=== PATIENT | male | born 1945 | race Caucasian/White ===

== ENCOUNTER 2017-05-29 12:47 | Observation (INO) | payer MEDICARE ==
[~2017-05-29 12:47] MED LIST: ASPI81TA82 PO; CLOP75 PO; COZA50TA PO; FURO1TAB93 PO; GLUCTAB PO; HYDR-3534 PO; HYDR100T2 PO; K-TA10TA5 PO; METO50 PO; METO5TAB46 PO; MULT-65 PO; NOVO7030P2 SQ; PRAV80 PO; PROM1SUP12 PR; PROT40TA PO; TYLE500T PO
[2017-05-29 13:25] VITALS: BP 140/80; PULSE 79; RESP 18; TEMP 98.1; O2SAT 97
--- NOTE | 2017-05-29 13:51 | RADRPT ---
EXAM DATE/TIME: 05/29/2017 13:41 [place] COMPARISON: No previous studies available for comparison. INDICATIONS : Chest pain. MEDICAL HISTORY : Heart attack. SURGICAL HISTORY : None. ENCOUNTER: Initial ACUITY: 1 day PAIN SCORE: 5/10 LOCATION: Bilateral chest FINDINGS: The lungs are hyperinflated but clear The heart is minimally enlarged. The pulmonary vascularity is n ormal. There is no evidence for infiltrate or failure. The portion of the bony skeleton visualized is unremarkable. CONCLUSION: Compensated cardiomegaly otherwise negative Sumanth Monreal MD FACR on May 29, 2017 at 13:50 Board Certified Radiologist. This report was verified electronically.
[2017-05-29 14:13] VITALS: O2SAT 97
--- NOTE | 2017-05-29 14:16 | PD ---
HPI Chief Complaint: Cardiac Complaint Time Seen by Provider: 13:53 Travel History International Travel<30 days: No Contact w/Intl Traveler<30days: No Traveled to known affect area: No History of Present Illness HPI 67-year-old male presents with chest tightness gradually worsening shortness of breath. Patient states diagnosed with CHF followed by Dr. Qureshi sent to the ER from urgent care today for evaluation to rule out patient has been having chest pain since last night. Patient states she has shortness of breath. PFSH Past Medical History Hx Anticoagulant Therapy: Yes Arthritis: Yes Heart Rhythm Problems: No Cancer: No Cardiovascular Problems: Yes High Cholesterol: Yes Chest Pain: Yes Congestive Heart Failure: No Diabetes: Yes Endocrine: No Gastrointestinal Disorders: Yes Glaucoma: Yes (MAC DEGENERATION) Genitourinary: No Hepatitis: No Hiatal Hernia: Yes Hypertension: Yes Immune Disorder: No Musculoskeletal: Yes (ARTHRITIS) Neurologic: No Psychiatric: No Reproductive: No Respiratory: Yes (SLEEP APNEA/ CPAP) Thyroid Disease: No Ulcer: No Past Surgical History Abdominal Surgery: Yes (UMB. HERNIA REP.) AICD: No Cardiac Surgery: No Ear Surgery: No Endocrine Surgery: No Eye Surgery: No Genitourinary Surgery: No Joint Replacement: Yes (RIGHT KNEE) Oral Surgery: No Pacemaker: No Thoracic Surgery: No Social History Alcohol Use: Yes (RECOVERING) Tobacco Use: No Substance Use: No Allergies-Medications (Allergen,Severity, Reaction): Coded Allergies: diatrizoate meglumine (Unverified Allergy, Unknown, 05/29/17) gadobenic acid (Unverified Allergy, Unknown, 05/29/17) gadodiamide (Unverified Allergy, Unknown, 05/29/17) gadoteridol (Unverified Allergy, Unknown, 05/29/17) iodixanol (Unverified Allergy, Unknown, 05/29/17) iohexol (Unverified Allergy, Unknown, 05/29/17) penicillin G (Unverified Allergy, Unknown, 05/29/17) Reported Meds & Prescriptions Reported Meds & Active Scripts Active Reported Warfarin 7.5 Mg Tab 7.5 Mg PO , , Patient takes Coumadin 7.5 mg Saturday and Saturday Warfarin 5 Mg Tab 5 Mg PO , , , Patient takes 5 mg Coumadin Saturday, , Saturday and Saturday Pravastatin 10 Mg Tab 10 Mg PO DAILY Novolin 70-30 Inj (Insulin Human Isoph/Insulin Regular) 1,000 Unit/10 Ml Vial 1 Units SQ Multiple Vitamin (Multivitamin with Minerals) 1 Each Tablet Metformin (Metformin HCl) 500 Mg Tab 500 Mg PO BIDPC Losartan (Losartan Potassium) 100 Mg Tab 100 Mg PO DAILY Hydralazine HCl 25 Mg Tablet 100 Mg PO BID Furosemide 40 Mg Tab 40 Mg PO BID Ferrous Sulfate 325 Mg (65 Mg Iron) Tablet 325 Mg PO DAILY Claritin (Loratadine) 10 Mg Cap 10 Mg PO DAILY [calcium] 600 Mg PO Jesus Contour Blood Glucose Strips (Blood Glucose Test Strips) Strip Strip 1 Strip .XX DIRECTED Aspirin 81 Mg Chew 81 Mg CHEW DAILY Review of Systems Except as stated in HPI: all other systems reviewed are Neg Physical Exam Narrative GENERAL: Well-developed well-nourished, mildly tachypneic but in no obvious distress peer SKIN: Focused skin assessment warm/dry. HEAD: Atraumatic. Normocephalic. EYES: Pupils equal and round. No scleral icterus. No injection or drainage. ENT: No nasal bleeding or discharge. Mucous membranes pink and moist. NECK: Trachea midline. No JVD. CARDIOVASCULAR: Regular rate and rhythm. No murmur appreciated. RESPIRATORY: No accessory muscle use. Clear to auscultation. Breath sounds equal bilaterally. Mildly tachypneic, speaking in full sentences per GASTROINTESTINAL: Abdomen soft, non-tender, nondistended. Hepatic and splenic margins not palpable. MUSCULOSKELETAL: No obvious deformities. No clubbing. No cyanosis. 2+ pitting edema to bilateral lower extremities this is present from the knees down. NEUROLOGICAL: Awake and alert. No obvious cranial nerve deficits. Motor grossly within normal limits. Normal speech. PSYCHIATRIC: Appropriate mood and affect; insight and judgment normal. Data Data Last Documented VS Vital Signs Date Time Temp Pulse Resp B/P (MAP) Pulse Ox O2 Delivery O2 Flow Rate FiO2 05/29/17 15:08 69 18 138/82 (100) 99 05/29/17 14:14 Room Air 05/29/17 13:25 98.1 Orders Orders Electrocardiogram (05/29/17 13:28) Complete Blood Count With Diff (05/29/17 13:28) Basic Metabolic Panel (Bmp) (05/29/17 13:28) Ckmb (Isoenzyme) Profile (05/29/17 13:28) Troponin I (05/29/17 13:28) Iv Access Insert/Monitor (05/29/17 13:28) Ecg Monitoring (05/29/17 13:28) Oxygen Administration (05/29/17 13:28) Oximetry (05/29/17 13:28) Prothrombin Time / Inr (Pt) (05/29/17 13:28) Act Partial Throm Time (Ptt) (05/29/17 13:28) Chest, Pa & Lat (05/29/17 ) B-Type Natriuretic Peptide (05/29/17 14:13) Troponin I (05/29/17 15:53) Furosemide Inj (Lasix Inj) (05/29/17 17:00) Consult Cardiology (05/29/17 ) Admit Order (Ed Use Only) (05/29/17 ) Labs Laboratory Tests Test 05/29/17 13:35 05/29/17 15:59 White Blood Count 10.7 TH/MM3 Red Blood Count 4.51 MIL/MM3 Hemoglobin 13.3 GM/DL Hematocrit 40.2 % Mean Corpuscular Volume 89.0 FL Mean Corpuscular Hemoglobin 29.4 PG Mean Corpuscular Hemoglobin Concent 33.1 % Red Cell Distribution Width 16.9 % Platelet Count 267 TH/MM3 Mean Platelet Volume 8.7 FL Neutrophils (%) (Auto) 82.7 % Lymphocytes (%) (Auto) 6.1 % Monocytes (%) (Auto) 10.1 % Eosinophils (%) (Auto) 0.6 % Basophils (%) (Auto) 0.5 % Neutrophils # (Auto) 8.9 TH/MM3 Lymphocytes # (Auto) 0.7 TH/MM3 Monocytes # (Auto) 1.1 TH/MM3 Eosinophils # (Auto) 0.1 TH/MM3 Basophils # (Auto) 0.1 TH/MM3 CBC Comment DIFF FINAL Differential Comment Prothrombin Time 19.5 SEC Prothromb Time International Ratio 1.9 RATIO Activated Partial Thromboplast Time 32.4 SEC Blood Urea Nitrogen 16 MG/DL Creatinine 0.91 MG/DL Random Glucose 167 MG/DL Calcium Level 9.2 MG/DL Sodium Level 137 MEQ/L Potassium Level 3.6 MEQ/L Chloride Level 102 MEQ/L Carbon Dioxide Level 26.4 MEQ/L Anion Gap 9 MEQ/L Estimat Glomerular Filtration Rate 82 ML/MIN Total Creatine Kinase 94 U/L Troponin I 0.04 NG/ML 0.04 NG/ML B-Type Natriuretic Peptide 228 PG/ML MDM Medical Decision Making Medical Screen Exam Complete: Yes Emergency Medical Condition: Yes Differential Diagnosis Acute on chronic CHF, ACS, [place]. Narrative Course Patient roomed in the emergency department, certainly has orthopnea as well as some pedal edema and some chest pain which resolved with nitroglycerin that was given at urgent care center. Patient was discussed with Dr. Qureshi who would like the patient to be admitted and diuresed, initially Dr. Lawrence would like the patient to go to chest pain center however discussion with the chest pain center PA and they are not comfortable delivering Lasix and diuresing the patient. The patient was then discussed with Dr. Hola Bennett for admission and he is agreeable. Diagnosis Primary Impression: Chest pain Admitting Information Admitting Physician Requests: Observation Condition: Stable Rufus Marie MD May 29, 2017 14:16
[2017-05-29 14:18] LABS: BICARBONATE 26.4 MEQ/L (21.0-32.0); CALCIUM 9.2 MG/DL (8.5-10.1); CREATININE 0.91 MG/DL (0.60-1.30)
[2017-05-29 14:20] LABS: AUTOMATED NEUTROPHIL # 8.9 TH/MM3 (1.8-7.7); BASOPHIL # 0.1 TH/MM3 (0-0.2); BASOPHIL % 0.5 % (0.0-2.0); EOSINOPHIL # 0.1 TH/MM3 (0-0.4); EOSINOPHIL % 0.6 % (0.0-4.0); HEMATOCRIT 40.2 % (39.0-51.0); HEMOGLOBIN 13.3 GM/DL (13.0-17.0); LYMPH % 6.1 % (9.0-44.0); LYMPHOCYTE # 0.7 TH/MM3 (1.0-4.8); MEAN CORPUSCULAR HEMOGLOBIN 29.4 PG (27.0-34.0); MEAN CORPUSCULAR HGB CONC 33.1 % (32.0-36.0); MEAN PLATELET VOLUME 8.7 FL (7.0-11.0); MONO % 10.1 % (0.0-8.0); MONOCYTE # 1.1 TH/MM3 (0-0.9); NEUT % 82.7 % (16.0-70.0); PLATELET COUNT 267 TH/MM3 (150-450); RED BLOOD COUNT 4.51 MIL/MM3 (4.50-5.90); RED CELL DISTRIBUTION WIDTH 16.9 % (11.6-17.2); WHITE BLOOD COUNT 10.7 TH/MM3 (4.0-11.0)
[2017-05-29 14:21] LABS: TROPONIN I 0.04 NG/ML (0.02-0.05)
[2017-05-29 14:23] LABS: INTERNATIONAL NORMALIZED RATIO 1.9 RATIO; PROTHROMBIN TIME - PATIENT 19.5 SEC (9.8-11.6)
[2017-05-29 15:08] VITALS: BP 138/82; PULSE 69; RESP 18; O2SAT 99
[2017-05-29] MEDS ORDERED: calcium PO (15:17)
[2017-05-29] MEDS ORDERED: BAYETES (15:17)
[2017-05-29] MEDS ORDERED: METF500T PO (15:17)
[2017-05-29] MEDS ORDERED: NO ITAB (15:17)
[2017-05-29] MEDS ORDERED: WARF-23 PO (15:17)
[2017-05-29] MEDS ORDERED: ASPI-516 CHEW (15:17)
[2017-05-29] MEDS ORDERED: CLAR10CA3 PO (15:17)
[2017-05-29] MEDS ORDERED: PRAV10TA PO (15:17)
[2017-05-29] MEDS ORDERED: LOSA100T PO (15:17)
[2017-05-29] MEDS ORDERED: FURO40TA PO (15:17)
[2017-05-29] MEDS ORDERED: HYDR-3799 PO (15:17)
[2017-05-29] MEDS ORDERED: NOVO7030P2 SQ (15:17)
[2017-05-29] MEDS ORDERED: FERR325T18 PO (15:17)
[2017-05-29] MEDS ORDERED: SODIUM CHLORIDE 0.9% FLUSH 10 ML FLUSH IV FLUSH PRN (17:00)
[2017-05-29] MEDS ORDERED: ONDANSETRON HCL 4 MG/2 ML VIAL IVP PRN (17:00)
[2017-05-29] MEDS ORDERED: MAGNESIUM HYDROXIDE SUSP 30 ML CUP PO PRN (17:00)
[2017-05-29] MEDS ORDERED: NALOXONE HCL 0.4 MG/ML AMP IV PUSH PRN (17:00)
[2017-05-29] MEDS ORDERED: ACETAMINOPHEN 325 MG TAB PO PRN (17:00)
[2017-05-29] MEDS ORDERED: FUROSEMIDE 100 MG/10 ML VIAL IV PUSH ONE (17:00)
--- NOTE | 2017-05-29 17:00 | HHI.HP ---
HPI Service [facility] Primary Care Physician Kandace Rosas MD Admission Diagnosis CHF exacerbation and chest pain Chief Complaint: chest pain and SOB Travel History International Travel<30 Days: No Contact w/Intl Traveler <30 Da: No Traveled to Known Affected Are: No History of Present Illness This is a 71-year-old male patient with past medical history which includes cardiomegaly, congestive heart failure, anemia, anxiety, coronary artery atherosclerosis, atrial fibrillation, benign positional vertigo, Past Family Social History Allergies: Coded Allergies: diatrizoate meglumine (Unverified Allergy, Unknown, 05/29/17) gadobenic acid (Unverified Allergy, Unknown, 05/29/17) gadodiamide (Unverified Allergy, Unknown, 05/29/17) gadoteridol (Unverified Allergy, Unknown, 05/29/17) iodixanol (Unverified Allergy, Unknown, 05/29/17) iohexol (Unverified Allergy, Unknown, 05/29/17) penicillin G (Unverified Allergy, Unknown, 05/29/17) Physical Exam Vital Signs Vital Signs Date Time Temp Pulse Resp B/P (MAP) Pulse Ox O2 Delivery O2 Flow Rate FiO2 05/29/17 15:08 69 18 138/82 (100) 99 05/29/17 14:14 18 97 Room Air 05/29/17 14:13 97 Room Air 05/29/17 14:13 97 Room Air 05/29/17 13:25 98.1 79 18 140/80 (100) 97 Physical Exam GENERAL: This is a well-nourished, well-developed patient, in no apparent distress. SKIN: No rashes, ecchymoses or lesions. Cool and dry. HEAD: Atraumatic. Normocephalic. No temporal or scalp tenderness. EYES: Pupils equal round and reactive. Extraocular motions intact. No scleral icterus. No injection or drainage. ENT: Nose without bleeding, purulent drainage or septal hematoma. Throat without erythema, tonsillar hypertrophy or exudate. Uvula midline. Airway patent. NECK: Trachea midline. No JVD or lymphadenopathy. Supple, nontender, no meningeal signs. CARDIOVASCULAR: Regular rate and rhythm without murmurs, gallops, or rubs. RESPIRATORY: Clear to auscultation. Breath sounds equal bilaterally. No wheezes , rales, or rhonchi. GASTROINTESTINAL: Abdomen soft, non-tender, nondistended. No hepato-splenomegaly , or palpable masses. No guarding. MUSCULOSKELETAL: Extremities without clubbing, cyanosis, or edema. No joint tenderness, effusion, or edema noted. No calf tenderness. Negative Homans sign bilaterally. NEUROLOGICAL: Awake and alert. Cranial nerves II through XII intact. Motor and sensory grossly within normal limits. Five out of 5 muscle strength in all muscle groups. Normal speech. Laboratory Laboratory Tests Test 05/29/17 13:35 05/29/17 15:59 White Blood Count 10.7 Red Blood Count 4.51 Hemoglobin 13.3 Hematocrit 40.2 Mean Corpuscular Volume 89.0 Mean Corpuscular Hemoglobin 29.4 Mean Corpuscular Hemoglobin Concent 33.1 Red Cell Distribution Width 16.9 Platelet Count 267 Mean Platelet Volume 8.7 Neutrophils (%) (Auto) 82.7 Lymphocytes (%) (Auto) 6.1 Monocytes (%) (Auto) 10.1 Eosinophils (%) (Auto) 0.6 Basophils (%) (Auto) 0.5 Neutrophils # (Auto) 8.9 Lymphocytes # (Auto) 0.7 Monocytes # (Auto) 1.1 Eosinophils # (Auto) 0.1 Basophils # (Auto) 0.1 CBC Comment DIFF FINAL Differential Comment Prothrombin Time 19.5 Prothromb Time International Ratio 1.9 Activated Partial Thromboplast Time 32.4 Blood Urea Nitrogen 16 Creatinine 0.91 Random Glucose 167 Calcium Level 9.2 Sodium Level 137 Potassium Level 3.6 Chloride Level 102 Carbon Dioxide Level 26.4 Anion Gap 9 Estimat Glomerular Filtration Rate 82 Total Creatine Kinase 94 Troponin I 0.04 B-Type Natriuretic Peptide 228 Result Diagram: 05/29/17 1335 05/29/17 1335 Caprini VTE Risk Assessment Caprini Risk Assessment Model Point Value = 1 Point Value = 2 Point Value = 3 Point Value = 5 Age 41-60 Minor surgery BMI > 25 kg/m2 Swollen legs Varicose veins or History of unexplained or recurrent spontaneous Oral contraceptives or hormone replacement Sepsis (< 1 month) Serious lung disease, including pneumonia (< 1 month) Abnormal pulmonary function Acute myocardial infarction Congestive heart failure (< 1 month) History of inflammatory bowel disease Medical patient at bed rest Age 61-74 Arthroscopic surgery Major open surgery (> 45 min) Laparoscopic surgery (> 45 min) Malignancy Confined to bed (> 72 hours) Immobilizing plaster cast Central venous access Age >= 75 History of VTE Family history of VTE Factor V Leiden Prothrombin [id number] Lupus anticoagulant Anticardiolipin antibodies Elevated serum homocysteine Heparin-induced thrombocytopenia Other congenital or acquired thrombophilia Stroke (< 1 month) Elective arthroplasty Hip, pelvis, or leg fracture Acute spinal cord injury (< 1 month) Prophylaxis Regimen Total Risk Factor Score Risk Level Prophylaxis Regimen 0-1 Low Early ambulation 2 Moderate Order ONE of the following: *Sequential Compression Device (SCD) *Heparin 5000 units SQ BID 3-4 Higher Order ONE of the following medications: *Heparin 5000 units SQ TID *Enoxaparin/Lovenox 40 mg SQ daily (WT < 150 kg, CrCl > 30 mL/min) *Enoxaparin/Lovenox 30 mg SQ daily (WT < 150 kg, CrCl > 10-29 mL/min) *Enoxaparin/Lovenox 30 mg SQ BID (WT < 150 kg, CrCl > 30 mL/min) AND/OR *Sequential Compression Device (SCD) 5 or more Highest Order ONE of the following medications: *Heparin 5000 units SQ TID (Preferred with Epidurals) *Enoxaparin/Lovenox 40 mg SQ daily (WT < 150 kg, CrCl > 30 mL/min) *Enoxaparin/Lovenox 30 mg SQ daily (WT < 150 kg, CrCl > 10-29 mL/min) *Enoxaparin/Lovenox 30 mg SQ BID (WT < 150 kg, CrCl > 30 mL/min) AND *Sequential Compression Device (SCD) Joselyn Toro May 29, 2017 16:59
[2017-05-29] MEDS ORDERED: WARF-21 PO (17:07)
[2017-05-29] MEDS ORDERED: GLUCAGON 1 MG/ML VIAL OTHER PRN (17:15)
[2017-05-29] MEDS ORDERED: DEXTROSE 50% IN WATER 50 ML VIAL(D50) IV PUSH PRN (17:15)
[2017-05-29 17:30] VITALS: BP 162/84; PULSE 71; RESP 18; O2SAT 100
--- NOTE | 2017-05-29 18:02 | HHI.HP ---
HPI Service [facility] Hospitalists Primary Care Physician Kandace Rosas MD Admission Diagnosis CHF exacerbation and chest pain Chief Complaint: chest pain intermittent since 1 AM Travel History International Travel<30 Days: No Contact w/Intl Traveler <30 Da: No Traveled to Known Affected Are: No History of Present Illness This is a 71-year-old male patient with past medical history which includes cardiomegaly, congestive heart failure, anemia, anxiety, coronary artery atherosclerosis, atrial fibrillation, benign positional vertigo, who has had SOB for 6 months developed mid chest pain last night at rest and went to see doctor this am ,pain was relieved with NTG ,case discussed with Dr. Qureshi cardiology and sent patient to hospital for cardiac cath in am. Patient denies any radiation of pain ,no nausea or vomit. Review of Systems Cardiovascular: COMPLAINS OF: Chest pain Past Family Social History Past Medical History djd,hyperlipidemia,htnm,dm on insulin ?chf in past cad stent 4 years ago sleep apnea Past Surgical History stent hernia rt knee Reported Medications Warfarin 5 Mg Tab 5 Mg PO DAILY Pravastatin 10 Mg Tab 10 Mg PO DAILY Novolin 70-30 Inj (Insulin Human Isoph/Insulin Regular) 1,000 Unit/10 Ml Vial 1 Units SQ Multiple Vitamin (Multivitamin with Minerals) 1 Each Tablet Metformin (Metformin HCl) 500 Mg Tab 500 Mg PO BIDPC Losartan (Losartan Potassium) 100 Mg Tab 100 Mg PO DAILY Hydralazine HCl 25 Mg Tablet 100 Mg PO BID Furosemide 40 Mg Tab 40 Mg PO DAILY Ferrous Sulfate 325 Mg (65 Mg Iron) Tablet 325 Mg PO DAILY Claritin (Loratadine) 10 Mg Cap 10 Mg PO DAILY [calcium] 600 Mg PO Jesus Contour Blood Glucose Strips (Blood Glucose Test Strips) Strip Strip 1 Strip .XX DIRECTED Aspirin 81 Mg Chew 81 Mg CHEW DAILY Allergies: Coded Allergies: diatrizoate meglumine (Unverified Allergy, Unknown, 05/29/17) gadobenic acid (Unverified Allergy, Unknown, 05/29/17) gadodiamide (Unverified Allergy, Unknown, 05/29/17) gadoteridol (Unverified Allergy, Unknown, 05/29/17) iodixanol (Unverified Allergy, Unknown, 05/29/17) iohexol (Unverified Allergy, Unknown, 05/29/17) penicillin G (Unverified Allergy, Unknown, 05/29/17) Social History former drinker NS Physical Exam Vital Signs Vital Signs Date Time Temp Pulse Resp B/P (MAP) Pulse Ox O2 Delivery O2 Flow Rate FiO2 05/29/17 15:08 69 18 138/82 (100) 99 05/29/17 14:14 18 97 Room Air 05/29/17 14:13 97 Room Air 05/29/17 14:13 97 Room Air 05/29/17 13:25 98.1 79 18 140/80 (100) 97 Physical Exam GENERAL: This is a well-nourished, well-developed patient, in no apparent distress. SKIN: No rashes, ecchymoses or lesions. Cool and dry. HEAD: Atraumatic. Normocephalic. No temporal or scalp tenderness. EYES: Pupils equal round and reactive. Extraocular motions intact. No scleral icterus. No injection or drainage. ENT: Nose without bleeding, purulent drainage or septal hematoma. Throat without erythema, tonsillar hypertrophy or exudate. Uvula midline. Airway patent. NECK: Trachea midline. No JVD or lymphadenopathy. Supple, nontender, no meningeal signs. CARDIOVASCULAR: Regular rate and rhythm without murmurs, gallops, or rubs. RESPIRATORY: Bilateral decrease breath sounds. No wheezes, rales, or rhonchi. GASTROINTESTINAL: Abdomen soft, non-tender, nondistended. No hepato-splenomegaly , or palpable masses. No guarding. MUSCULOSKELETAL: Extremities without clubbing, cyanosis, or edema. No joint tenderness, effusion, or edema noted. No calf tenderness. Negative Homans sign bilaterally. NEUROLOGICAL: Awake and alert. Cranial nerves II through XII intact. Motor and sensory grossly within normal limits. Five out of 5 muscle strength in all muscle groups. Normal speech. Laboratory Laboratory Tests Test 05/29/17 13:35 05/29/17 15:59 White Blood Count 10.7 Red Blood Count 4.51 Hemoglobin 13.3 Hematocrit 40.2 Mean Corpuscular Volume 89.0 Mean Corpuscular Hemoglobin 29.4 Mean Corpuscular Hemoglobin Concent 33.1 Red Cell Distribution Width 16.9 Platelet Count 267 Mean Platelet Volume 8.7 Neutrophils (%) (Auto) 82.7 Lymphocytes (%) (Auto) 6.1 Monocytes (%) (Auto) 10.1 Eosinophils (%) (Auto) 0.6 Basophils (%) (Auto) 0.5 Neutrophils # (Auto) 8.9 Lymphocytes # (Auto) 0.7 Monocytes # (Auto) 1.1 Eosinophils # (Auto) 0.1 Basophils # (Auto) 0.1 CBC Comment DIFF FINAL Differential Comment Prothrombin Time 19.5 Prothromb Time International Ratio 1.9 Activated Partial Thromboplast Time 32.4 Blood Urea Nitrogen 16 Creatinine 0.91 Random Glucose 167 Calcium Level 9.2 Sodium Level 137 Potassium Level 3.6 Chloride Level 102 Carbon Dioxide Level 26.4 Anion Gap 9 Estimat Glomerular Filtration Rate 82 Total Creatine Kinase 94 Troponin I 0.04 0.04 B-Type Natriuretic Peptide 228 Result Diagram: 05/29/17 1335 05/29/17 1335 Imaging Last 24 hours Impressions Chest X-Ray 05/29/17 0000 Signed Impressions: Service Date/Time: Saturday, May 29, 2017 13:41 - CONCLUSION: Compensated cardiomegaly otherwise negative Sumanth Monreal MD FACR Caprini VTE Risk Assessment Caprini VTE Risk Assessment: Mod/High Risk (score >= 2) Caprini Risk Assessment Model Point Value = 1 Point Value = 2 Point Value = 3 Point Value = 5 Age 41-60 Minor surgery BMI > 25 kg/m2 Swollen legs Varicose veins or History of unexplained or recurrent spontaneous Oral contraceptives or hormone replacement Sepsis (< 1 month) Serious lung disease, including pneumonia (< 1 month) Abnormal pulmonary function Acute myocardial infarction Congestive heart failure (< 1 month) History of inflammatory bowel disease Medical patient at bed rest Age 61-74 Arthroscopic surgery Major open surgery (> 45 min) Laparoscopic surgery (> 45 min) Malignancy Confined to bed (> 72 hours) Immobilizing plaster cast Central venous access Age >= 75 History of VTE Family history of VTE Factor V Leiden Prothrombin [id number] Lupus anticoagulant Anticardiolipin antibodies Elevated serum homocysteine Heparin-induced thrombocytopenia Other congenital or acquired thrombophilia Stroke (< 1 month) Elective arthroplasty Hip, pelvis, or leg fracture Acute spinal cord injury (< 1 month) Prophylaxis Regimen Total Risk Factor Score Risk Level Prophylaxis Regimen 0-1 Low Early ambulation 2 Moderate Order ONE of the following: *Sequential Compression Device (SCD) *Heparin 5000 units SQ BID 3-4 Higher Order ONE of the following medications: *Heparin 5000 units SQ TID *Enoxaparin/Lovenox 40 mg SQ daily (WT < 150 kg, CrCl > 30 mL/min) *Enoxaparin/Lovenox 30 mg SQ daily (WT < 150 kg, CrCl > 10-29 mL/min) *Enoxaparin/Lovenox 30 mg SQ BID (WT < 150 kg, CrCl > 30 mL/min) AND/OR *Sequential Compression Device (SCD) 5 or more Highest Order ONE of the following medications: *Heparin 5000 units SQ TID (Preferred with Epidurals) *Enoxaparin/Lovenox 40 mg SQ daily (WT < 150 kg, CrCl > 30 mL/min) *Enoxaparin/Lovenox 30 mg SQ daily (WT < 150 kg, CrCl > 10-29 mL/min) *Enoxaparin/Lovenox 30 mg SQ BID (WT < 150 kg, CrCl > 30 mL/min) AND *Sequential Compression Device (SCD) Assessment and Plan Problem List: (1) Chest pain ICD Codes: R07.9 - Chest pain, unspecified Status: Acute Plan: Patient with episodes chest pain for cath in am continue current meds enzymes ekg serial ordered cardiology aware (2) Hypertension ICD Codes: I10 - Essential (primary) hypertension Plan: continue home medications (3) Diabetes ICD Codes: E11.9 - Type 2 diabetes mellitus without complications Status: Chronic Plan: patient on home insulin will use sliding scale NPO after midnight Assessment and Plan further plan as case develops Code Status full Discussed Condition With patient Min Roldan MD May 29, 2017 18:02
[2017-05-29] MEDS ORDERED: NITROGLYCERIN 0.4 MG SL 25 TABS/BTL SL PRN (18:15)
[2017-05-29] MEDS ORDERED: WARFARIN SOD 7.5 MG TAB PO ONE (18:45)
[2017-05-29] MEDS: metFORMIN HCL 500 MG TAB PO SCH (18:48)
[2017-05-29 19:38] VITALS: BP 157/84; PULSE 83; RESP 22; TEMP 98.6; O2SAT 99
[2017-05-29] MEDS: POTASSIUM CHLORIDE 20 MEQ CONTROLLED RELEASE TAB PO SCH (20:07)
[2017-05-29] MEDS: DOCUSATE SODIUM 50 MG/SENNA 8.6 MG TAB PO SCH (20:07)
[2017-05-29] MEDS: SODIUM CHLORIDE 0.9% FLUSH 10 ML FLUSH IV FLUSH SCH (20:07)
[2017-05-29] MEDS: INSULIN ASPART SUPPLEMENTAL SCALE SQ SCH (21:00)
[2017-05-29] MEDS: hydrALAZINE HCL 100 MG TAB PO SCH (21:04)
[2017-05-30] VITALS (7 sets, daily range): BP systolic 94–149; BP diastolic 54–74; PULSE 56–92; RESP 17–20; TEMP 97.3–98.5; O2SAT 96–100
[2017-05-30 05:50] LABS: AUTOMATED NEUTROPHIL # 5.3 TH/MM3 (1.8-7.7); BASOPHIL # 0.1 TH/MM3 (0-0.2); EOSINOPHIL # 0.1 TH/MM3 (0-0.4); EOSINOPHIL % 1.1 % (0.0-4.0); HEMATOCRIT 36.2 % (39.0-51.0); HEMOGLOBIN 12.1 GM/DL (13.0-17.0); LYMPH % 9.9 % (9.0-44.0); LYMPHOCYTE # 0.7 TH/MM3 (1.0-4.8); MEAN CELL VOLUME 87.9 FL (80.0-100.0); MEAN CORPUSCULAR HEMOGLOBIN 29.4 PG (27.0-34.0); MEAN CORPUSCULAR HGB CONC 33.5 % (32.0-36.0); MEAN PLATELET VOLUME 7.9 FL (7.0-11.0); MONO % 11.8 % (0.0-8.0); MONOCYTE # 0.8 TH/MM3 (0-0.9); NEUT % 76.2 % (16.0-70.0); PLATELET COUNT 198 TH/MM3 (150-450); RED BLOOD COUNT 4.12 MIL/MM3 (4.50-5.90); RED CELL DISTRIBUTION WIDTH 16.9 % (11.6-17.2)
[2017-05-30 06:06] LABS: BICARBONATE 27.4 MEQ/L (21.0-32.0); CALCIUM 8.6 MG/DL (8.5-10.1); CREATININE 0.76 MG/DL (0.60-1.30)
[2017-05-30] MEDS: INSULIN ASPART SUPPLEMENTAL SCALE SQ SCH ×3 (08:00→17:00)
[2017-05-30] MEDS ORDERED: ASPIRIN 81 MG CHEW TAB CHEW SCH (09:00)
[2017-05-30] MEDS ORDERED: PRAVASTATIN SOD 10 MG TAB PO SCH (09:00)
[2017-05-30] MEDS: metFORMIN HCL 500 MG TAB PO SCH (09:00)
[2017-05-30] MEDS ORDERED: FERROUS SULFATE 325 MG (65 MG ELEMENTAL IRON) TAB PO SCH (09:00)
[2017-05-30] MEDS ORDERED: LOSARTAN 50 MG TAB PO SCH (09:00)
[2017-05-30] MEDS: SODIUM CHLORIDE 0.9% FLUSH 10 ML FLUSH IV FLUSH SCH (09:00)
[2017-05-30] MEDS: hydrALAZINE HCL 100 MG TAB PO SCH (11:09)
[2017-05-30] MEDS: FUROSEMIDE 100 MG/10 ML VIAL IV PUSH SCH ×2 (11:11→18:00)
[2017-05-30] MEDS: DOCUSATE SODIUM 50 MG/SENNA 8.6 MG TAB PO SCH (11:11)
[2017-05-30] MEDS: POTASSIUM CHLORIDE 20 MEQ CONTROLLED RELEASE TAB PO SCH (11:12)
--- NOTE | 2017-05-30 11:28 | EKG ---
Date Performed: 05/29/2017 Time Performed: 13:52:49 PTAGE: 71 years EKG: ATRIAL FIBRILLATION WITH ABERRANT CONDUCTION OR VENTRICULAR PREMATURE COMPLEXES ANTEROSEPTA L MYOCARDIAL INFARCTION ABNORMAL ECG PREVIOUS TRACING : 12/05/2012 09.56 When compared to the prior EKG, patient is now in atrial fi brillation. DOCTOR: Chapito Rivas Interpretating Date/Time 05/30/2017 11:27:55
--- NOTE | 2017-05-30 11:29 | EKG ---
Date Performed: 05/29/2017 Time Performed: 18:34:08 PTAGE: 71 years EKG: ATRIAL FIBRILLATION WITH ABERRANT CONDUCTION OR VENTRICULAR PREMATURE COMPLEXES ANTEROLATER AL MYOCARDIAL INFARCTION ABNORMAL ECG PREVIOUS TRACING : 05/29/2017 13.52 Since the prior tracing, there has been no significant fay DOCTOR: Chapito Rivas Interpretating Date/Time 05/30/2017 11:28:26
--- NOTE | 2017-05-30 11:30 | EKG ---
Date Performed: 05/29/2017 Time Performed: 23:15:16 PTAGE: 71 years EKG: ATRIAL FIBRILLATION BORDERLINE RIGHT AXIS DEVIATION ANTEROSEPTAL MYOCARDIAL INFARCTION ABNO RMAL ECG PREVIOUS TRACING : 05/29/2017 18.34 Since the prior tracing, there has been no significant fay DOCTOR: Chapito Rivas Interpretating Date/Time 05/30/2017 11:28:36
[2017-05-30] MEDS ORDERED: METOLAZONE 5 MG TAB PO SCH (11:45)
--- NOTE | 2017-05-30 12:13 | MB ---
cc: Arnulfo Qureshi MD DATE OF CONSULT: 05/30/2017 INDICATION: Chest pain. HISTORY OF PRESENT ILLNESS: This is a very nice 71-year-old gentleman who I know well from the outpatient setting. He has history of primarily diastolic congestive heart failure, anemia, coronary disease with prior percutaneous intervention, atrial fibrillation, who has had some ongoing shortness of breath intermittently over the course of the past 3-6 months. Last night, he actually developed some substernal chest pain. It became worrisome enough for him to go to [facility]. There, initial troponins, electrocardiogram were unremarkable. His symptoms were relieved somewhat with nitroglycerin. He was recommended actually to come over for consideration at chest pain center for observational level of care, so we sent him over to the ER here at [facility]. He is not having any chest pain now. He still has some baseline shortness of breath. He is on anticoagulation. INR is 1.9 today. PAST MEDICAL HISTORY: Hyperlipidemia, hypertension, diabetes, diastolic congestive heart failure, coronary stent 4 years ago, sleep apnea. MEDICATIONS: Warfarin, pravastatin, insulin, metformin, losartan, hydralazine, Lasix, furosemide, Jesus aspirin 81 mg. ALLERGIES: SEE ALLERGY LIST. SOCIAL HISTORY: Denies any alcohol, tobacco, or drug use. REVIEW OF SYSTEMS: A 12-point review of systems was performed, negative unless otherwise noted in history of present illness. PHYSICAL EXAMINATION: Temp is 97, pulse 83, blood pressure 149/74 mmHg. GENERAL: Alert and oriented x 3. No acute distress. HEENT: Shows pupils reactive to light and accommodation. Extraocular movements intact. NECK: No elevation of jugular venous distention, no thyromegaly, no lymphadenopathy, no carotid bruit. LUNGS: Clear to auscultation bilaterally. Decreased breath sounds throughout. CARDIOVASCULAR: Irregular regular rhythm without murmurs, rubs or gallops. ABDOMEN: Soft, nontender, nondistended. Good bowel sounds. No hepatosplenomegaly. EXTREMITIES: Show no clubbing, cyanosis, or edema. Good peripheral pulses. CRANIAL NERVES: Intact. Motor, sensory grossly intact. LABORATORIES: Sodium 140, potassium 3.5. BUN is 19, creatinine 0.76. Hemoglobin is 12.1. INR is 1.9. ASSESSMENT: 1. Chest pain. 2. History of diastolic congestive heart failure. 3. Hypertension. 4. Hyperlipidemia. 5. Diabetes. PLAN: He does have somewhat suggestive symptoms relieved with nitroglycerin but EKG and troponins are unremarkable. His INR is elevated today, so we cannot proceed with cardiac catheterization regardless. I discussed options with him. We are going to proceed with a Lexiscan. If that comes back with intermediate risk, we may just add a long-acting nitrate and see if we can optimize him medically. If there is more significant or moderate ischemia, then we will schedule for a heart cath tomorrow. Hopefully, his INR will normalize by then. We will hold his Coumadin tonight and hold his metformin. We will administer some intravenous Lasix given his diastolic congestive heart failure. MD JAVIER Lawler/LINCOLN , 11:32 AM , 12:11 PM
--- NOTE | 2017-05-30 13:01 | HHI.PR ---
Subjective Remarks Pt admitted with recurrent episodes of chest pain. Pt had another episode of chest pain which occurred overnight while at rest. Pt c/o associated nausea without vomiting. No diaphoresis. Pt did have SOB. Episode lasted 30 minutes. Objective Vitals Vital Signs Date Time Temp Pulse Resp B/P (MAP) Pulse Ox O2 Delivery O2 Flow Rate FiO2 05/30/17 12:09 97.3 92 18 132/63 (86) 97 05/30/17 08:22 97.3 83 20 149/74 (99) 100 05/30/17 04:21 98.5 56 17 108/56 (73) 97 05/30/17 02:56 62 05/30/17 01:47 98.2 68 18 94/54 (67) 96 05/29/17 19:38 98.6 83 22 157/84 (108) 99 05/29/17 19:31 05/29/17 17:30 71 18 162/84 (110) 100 Room Air 05/29/17 15:08 69 18 138/82 (100) 99 05/29/17 14:14 18 97 Room Air 05/29/17 14:13 97 Room Air 05/29/17 14:13 97 Room Air 05/29/17 13:25 98.1 79 18 140/80 (100) 97 Result Diagram: 05/30/17 0515 05/30/17 0515 Imaging Last Impressions Chest X-Ray 05/29/17 0000 Signed Impressions: Service Date/Time: Monday, May 29, 2017 13:41 - CONCLUSION: Compensated cardiomegaly otherwise negative Sumanth Monreal MD FACR Objective Remarks GENERAL: This is a well-nourished, well-developed patient, in no apparent distress. CARDIOVASCULAR: Regular rate and rhythm without murmurs, gallops, or rubs. RESPIRATORY: Clear to auscultation. Breath sounds equal bilaterally. No wheezes , rales, or rhonchi. GASTROINTESTINAL: Abdomen soft, non-tender, nondistended. Normal active bowel sounds MUSCULOSKELETAL: Extremities without clubbing, cyanosis, or edema. NEURO: Alert & Oriented x4 to person, place, time, situation. Moves all ext x4 A/P Problem List: (1) Chest pain ICD Codes: R07.9 - Chest pain, unspecified Status: Acute Plan: - Pt admitted with c/o chest pain - Pt again had chest pain overnight. - serial cardiac enzymes are negative - serial EKGs did NOT show any acute ischemic changes - Case d/w Cardiology, Dr. Qureshi, (05/30). - Will obtain Lexiscan. (2) Hypertension ICD Codes: I10 - Essential (primary) hypertension Status: Chronic Plan: - stable - cozaar, apresoline (3) Diabetes ICD Codes: E11.9 - Type 2 diabetes mellitus without complications Status: Chronic Plan: - SSI Problem Qualifiers (1) Hypertension: Qualified Codes: I10 - Essential (primary) hypertension (2) Diabetes: Dylan Bennett DO May 30, 2017 13:01
[2017-05-30] MEDS ORDERED: REGADENOSON INJ 0.4 MG/5 ML SYR ONE (14:53)
[2017-05-30] MEDS ORDERED: WARFARIN SOD 5 MG TAB PO SCH (16:00)
--- NOTE | 2017-05-30 16:06 | RADRPT ---
EXAM DATE/TIME: 05/30/2017 14:17 [facility] COMPARISON: No previous studies available for comparison. INDICATIONS : Chest pain and shortness of breath. Angina. DOSE: 25.5 mCi Tc99m Myoview at stress. 8.5 mCi Tc99m Myoview at rest. 0.4 mg Lexiscan STRESS SYMPTOMS: Shortness of breath. EJECTION FRACTION: 30% MEDICAL HISTORY : Hypercholesterolemia. Hypertension. Diabetes mellitus type 2. SURGICAL HISTORY : Umbilical hernia repair. ENCOUNTER: Initial ACUITY: 1 day PAIN SCALE: 3/10 LOCATION: Bilateral chest TECHNIQUE: The patient underwent pharmacologic stress with infusion of prescribed dose. Continuous ECG tracing was monitored during stress. Gated SPECT imaging was performed after stress and conventional SPECT i maging was performed at rest. The examination was performed on a SPECT/CT scanner, both attenuation and non-corrected datasets were reviewed. FINDINGS: DISTRIBUTION: The maximum perfused segment at stress is in the lateral wall. PERFUSION STUDY: No reversible perfusion defects. Matched decreased perfusion to the apex and inferior wall GATED STUDY: There is global hypokinesia CONCLUSION: 1. Dilated cardiomyopathy. Ejection fraction 30%. 2. No reversible perfusion defects to suggest ischemia. RISK CATEGORY: High (>3% Annual Mortality Rate) Zay Reyes MD on May 30, 2017 at 16:03 Board Certified Radiologist. This report was verified electronically.
[2017-05-30] MEDS ORDERED: ISOS120T PO (16:40)
--- NOTE | 2017-05-30 17:30 | HHI.DS ---
Discharge Summary Admission Date May 29, 2017 at 17:00 Discharge Date: May 30, 2017 Admitting Diagnosis CHF exacerbation and chest pain (1) Chest pain Diagnosis: Principal ICD Codes: R07.9 - Chest pain, unspecified Status: Acute (2) Hypertension Diagnosis: Secondary ICD Codes: I10 - Essential (primary) hypertension Status: Chronic (3) Diabetes Diagnosis: Secondary ICD Codes: E11.9 - Type 2 diabetes mellitus without complications Status: Chronic Consultants Dr. Qureshi Procedures none Brief History This is a 71-year-old male patient with past medical history which includes cardiomegaly, congestive heart failure, anemia, anxiety, coronary artery atherosclerosis, atrial fibrillation, benign positional vertigo, who has had SOB for 6 months developed mid chest pain last night at rest and went to see doctor this am ,pain was relieved with NTG ,case discussed with Dr. Qureshi cardiology and sent patient to hospital for cardiac cath in am. Patient denies any radiation of pain ,no nausea or vomit. CBC/BMP: 05/30/17 0515 05/30/17 0515 Significant Findings Laboratory Tests Test 05/29/17 13:35 05/29/17 15:59 05/29/17 21:15 05/30/17 05:15 Neutrophils (%) (Auto) 82.7 % (16.0-70.0) 76.2 % (16.0-70.0) Lymphocytes (%) (Auto) 6.1 % (9.0-44.0) Monocytes (%) (Auto) 10.1 % (0.0-8.0) 11.8 % (0.0-8.0) Neutrophils # (Auto) 8.9 TH/MM3 (1.8-7.7) Lymphocytes # (Auto) 0.7 TH/MM3 (1.0-4.8) 0.7 TH/MM3 (1.0-4.8) Monocytes # (Auto) 1.1 TH/MM3 (0-0.9) Prothrombin Time 19.5 SEC (9.8-11.6) Activated Partial Thromboplast Time 32.4 SEC (24.3-30.1) Random Glucose 167 MG/DL (74-106) Estimat Glomerular Filtration Rate 82 ML/MIN (>89) B-Type Natriuretic Peptide 228 PG/ML (0-100) Red Blood Count 4.12 MIL/MM3 (4.50-5.90) Hemoglobin 12.1 GM/DL (13.0-17.0) Hematocrit 36.2 % (39.0-51.0) Blood Urea Nitrogen 19 MG/DL (7-18) Imaging Last Impressions Myocardial Perfusion Scan Nuc Med 05/30/17 0000 Signed Impressions: Service Date/Time: May 14:17 - CONCLUSION: 1. Dilated cardiomyopathy. Ejection fraction 30%%. 2. No reversible perfusion defects to suggest ischemia. RISK CATEGORY: High (>3%% Annual Mortality Rate) Zay Reyes MD Chest X-Ray 05/29/17 0000 Signed Impressions: Service Date/Time: Monday, May 29, 2017 13:41 - CONCLUSION: Compensated cardiomegaly otherwise negative Sumanth Monreal MD FACR PE at Discharge GENERAL: This is a well-nourished, well-developed patient, in no apparent distress. CARDIOVASCULAR: Regular rate and rhythm without murmurs, gallops, or rubs. RESPIRATORY: Clear to auscultation. Breath sounds equal bilaterally. No wheezes , rales, or rhonchi. GASTROINTESTINAL: Abdomen soft, non-tender, nondistended. Normal active bowel sounds MUSCULOSKELETAL: Extremities without clubbing, cyanosis, or edema. NEURO: Alert & Oriented x4 to person, place, time, situation. Moves all ext x4 Hospital Course Chest pain - Pt admitted with c/o chest pain - Pt again had chest pain overnight. - serial cardiac enzymes are negative - serial EKGs did NOT show any acute ischemic changes - Case d/w Cardiology, Dr. Qureshi, (05/30). - Lexiscan completed revealed dilated cardiomyopathy. ejection fraction 30%. No reversible perfusion defects to suggest ischemia. - results reviewed with Dr. Qureshi, who cleared patient for DC recommended adding isosorbide 120 mg PO daily Hypertension - stable - cozaar, Apresoline Diabetes - SSI Pt Condition on Discharge: Stable Discharge Disposition: Discharge Home Discharge Instructions DIET: Follow Instructions for: Heart Healthy Diet, Diabetic Diet Activities you can perform: Regular-No Restrictions Follow up Referrals: Cardiology - [address] Qureshi PCP Follow-up - [address] Rosas New Medications: Isosorbide Mononitrate ER (Isosorbide Mononitrate ER) 120 Mg Patricia 120 MG PO DAILY for Prevent Chest Pain, #30 TAB 0 Refills Continued Medications: Aspirin (Aspirin) 81 Mg Chew 81 MG CHEW DAILY, TAB 0 Refills Ferrous Sulfate (Ferrous Sulfate) 325 Mg (65 Mg Iron) Tablet 325 MG PO DAILY for Nutritional Supplement, #30 TAB 0 Refills Furosemide (Furosemide) 40 Mg Tab 40 MG PO BID, #30 TAB 0 Refills Glucose Blood Strips (Jesus Contour Blood Glucose Strips) Strip Strip 1 STRIP .XX DIRECTED for Blood Sugar Management, #25 STRIPS 0 Refills Hydralazine HCl (Hydralazine HCl) 25 Mg Tablet 100 MG PO BID for Blood Pressure Management, #60 TAB 0 Refills Insulin Human Isophane-Regular 70-30 Inj (Novolin 70-30 Inj) 1,000 Unit/10 Ml Vial 1 UNITS SQ for Blood Sugar Management, ML 0 Refills Loratadine (Claritin) 10 Mg Cap 10 MG PO DAILY for Allergy Management, CAP 0 Refills Losartan (Losartan) 100 Mg Tab 100 MG PO DAILY for Blood Pressure Management, #30 TAB 0 Refills Metformin (Metformin) 500 Mg Tab 500 MG PO BIDPC for Blood Sugar Management, #60 TAB 0 Refills Multivitamin with Minerals (Multiple Vitamin) 1 Each Tablet Pravastatin (Pravastatin) 10 Mg Tab 10 MG PO DAILY for Cholesterol Management, #30 TAB 0 Refills Warfarin (Warfarin) 5 Mg Tab 5 MG PO , , , for Blood Clot Prevention, #30 TAB 0 Refills Patient takes 5 mg Coumadin Saturday, , Saturday and Saturday Warfarin (Warfarin) 7.5 Mg Tab 7.5 MG PO , , for Blood Clot Prevention, #30 TAB 0 Refills Patient takes Coumadin 7.5 mg Saturday and Saturday [calcium] () 600 MG PO Additional Information Patient examined. Assessment and plan formulated with Joselyn Toro PA-C. I agree with the above. Joselyn Toro May 30, 2017 17:30 Dylan Bennett DO Jun 03, 2017 11:39
--- NOTE | 2017-05-30 18:08 | HHI.DCPOC ---
Discharge Care Plan Diagnosis: (1) Chest pain (2) Hypertension (3) Diabetes Goals to Promote Your Health * To prevent worsening of your condition and complications * To maintain your health at the optimal level Directions to Meet Your Goals Take your medications as prescribed Follow your dietary instruction Follow activity as directed Keep your appointments as scheduled Take your immunizations and boosters as scheduled If your symptoms worsen call your PCP, if no PCP go to Urgent Care Center or Emergency Room Smoking is Dangerous to Your Health. Avoid second hand smoke Call the 24-hour hour crisis hotline for domestic abuse at Joselyn Toro May 30, 2017 18:08 Dylan Bennett DO Jun 03, 2017 11:39
[2017-05-31] MEDS ORDERED: WARFARIN SOD 7.5 MG TAB PO SCH (16:00)
== END 2017-05-30 19:40 | disposition home or self-care (01) ==
LOC: NEPC 12:47 → NEDA 17:00 → NEPFCDU 19:28
PROVIDERS: ADMIT Hospitalist; ATTEND Hospitalist
DX: R07.89 Other chest pain (principal); R79.1 Abnormal coagulation profile; R11.0 Nausea; I11.0 Hypertensive heart disease with heart failure; I50.32 Chronic diastolic (congestive) heart failure; E11.9 Type 2 diabetes mellitus without complications; I25.119 Atherosclerotic heart disease of native coronary artery with unspecified angina pectoris; I42.0 Dilated cardiomyopathy; I25.2 Old myocardial infarction; I48.91 Unspecified atrial fibrillation; R94.31 Abnormal electrocardiogram [ECG] [EKG]; E78.00 Pure hypercholesterolemia, unspecified; G47.30 Sleep apnea, unspecified; F41.9 Anxiety disorder, unspecified; H35.30 Unspecified macular degeneration; M19.90 Unspecified osteoarthritis, unspecified site; Z95.5 Presence of coronary angioplasty implant and graft; Z79.899 Other long term (current) drug therapy; Z79.82 Long term (current) use of aspirin; Z79.01 Long term (current) use of anticoagulants; Z79.4 Long term (current) use of insulin
CPT/HCPCS: 71046; 78452; 80048; 82550; 82948; 83880; 84484; 85025; 85610; 85730; 93005; 93017; 96372; 96374; 96376; 99285; A9502; G0378; J1815; J1940; J2785